=== PATIENT | female | born 1950 | race Two or more races ===

== ENCOUNTER → 2019-12-10 14:46 | Outpatient (BNVA) | payer MEDICAID, SELFPAY | PROVIDERS: Visit Provider Internal Medicine | DX: I21.4 Non-ST elevation (NSTEMI) myocardial infarction (principal); I10 Essential (primary) hypertension; E78.5 Hyperlipidemia, unspecified; E11.8 Type 2 diabetes mellitus with unspecified complications; Z86.19 Personal history of other infectious and parasitic diseases | CPT/HCPCS: 99214 ==

== ENCOUNTER 2020-03-06 14:24 | Outpatient (REF) | payer MEDICAID, SELFPAY | END 2020-03-06 14:25 | disposition home or self-care (01) | LOC: HO.LAB 14:24 | PROVIDERS: Visit Provider Internal Medicine | DX: Z20.828 Contact with and (suspected) exposure to other viral communicable diseases (principal) | CPT/HCPCS: 36415; C9803; U0003 ==

== ENCOUNTER 2020-03-16 11:09 | Outpatient (REF) | payer MEDICAID, SELFPAY | END 2020-03-16 11:10 | disposition home or self-care (01) | LOC: HO.LAB 11:09 | PROVIDERS: Visit Provider Internal Medicine | DX: Z20.822 Contact with and (suspected) exposure to COVID-19 (principal) | CPT/HCPCS: 36415; C9803; U0003 ==

== ENCOUNTER 2020-04-03 10:57 | Outpatient (REF) | payer MEDICAID, SELFPAY ==
--- NOTE | ~2020-04-03 | XR_ITS ---
EXAMINATION: XR LUMBOSACRAL SPINE WITH OBLIQUES CLINICAL INFORMATION: Lumbago right side. COMPARISON: None TECHNIQUE: AP, both oblique, and lateral views of the lumbar spine. Lateral view of the lumbosacral junction. FINDINGS: There is normal lumbar lordosis. The vertebral heights and alignment is normal. Mild loss of L4-L5 disc height with ventral and posterior spondylosis is noted. On oblique views there is no pars defect or listhesis. The facet joints are symmetrical. There is mild left facet joint arthropathy at L5-S1 disc level. Rest of the facet joints are unremarkable. No lytic or sclerotic process seen. There are multiple phleboliths overlying the sacrum. XR/XR lumbar spine 4V min IMPRESSION: Mild degenerative disc changes with spondylosis L4-L5 disc level. No listhesis or pars defect.
== END 2020-04-03 10:58 | disposition home or self-care (01) ==
LOC: HO.XRAY 10:57
PROVIDERS: PCP General Practice; Visit Provider Registered Nurse Community Health
DX: M54.41 Lumbago with sciatica, right side (principal)
CPT/HCPCS: 72110

== ENCOUNTER 2020-04-11 12:55 | Outpatient (REF) | payer MEDICAID, SELFPAY ==
--- NOTE | ~2020-04-11 | MM_ITS ---
EXAMINATION: MM SCREENING DIGITAL BREAST TOMOSYNTHESIS, BILATERAL CLINICAL INFORMATION: Screening. Asymptomatic. The lifetime risk of breast cancer based on the Tyrer-Cuzick Model is 3%. COMPARISON: Mammography: 08/06/2018, 07/10/2017, 06/06/2016 TECHNIQUE: Digital breast tomosynthesis is performed in both the craniocaudal and mediolateral oblique views along with computer-aided detection (CAD). Synthesized 2D images are generated from the tomosynthesis. Additional exaggerated left CC view and left MLO view are provided. FINDINGS: There are scattered areas of fibroglandular density (ACR BI-RADS breast composition Category b). There are no significant masses, abnormal calcifications, or other abnormalities. No significant changes from prior exams. MM/MM tomosynthesis screening BI IMPRESSION: No mammographic evidence of malignancy. ASSESSMENT: BI-RADS 1: Negative RECOMMENDATION: Routine annual mammography screening. This patient's information was entered into a reminder system with a target due date for their next mammogram.
== END 2020-04-11 12:56 | disposition home or self-care (01) ==
LOC: HO.MAMMO 12:55
PROVIDERS: PCP Emergency Medicine; Visit Provider Emergency Medicine
DX: Z12.31 Encounter for screening mammogram for malignant neoplasm of breast (principal)
CPT/HCPCS: 77063; 77067

== ENCOUNTER → 2020-04-29 13:13 | Outpatient (BNVA) | payer MEDICAID, SELFPAY | PROVIDERS: PCP General Practice; Visit Provider Nurse Practitioner ==

== ENCOUNTER 2020-05-08 08:43 | Outpatient (REF) | payer MEDICAID, SELFPAY ==
--- NOTE | ~2020-05-08 | FL_ITS ---
EXAMINATION: FL UPPER GI WITH AIR CLINICAL INFORMATION: Reflux. COMPARISON: CT scan of the abdomen and pelvis 08/21/2018. TECHNIQUE: A radiographic and fluoroscopic examination of the upper GI tract was performed utilizing air-contrast and single contrast technique with both thick and thin barium contrast solutions with the patient in the upright, prone and supine positions. Multiple spot images were obtained. FINDINGS: The swallowing mechanism appeared normal with normal esophageal motility. There is a sliding hiatal hernia with a Schatzki's ring. There is reflux present with the patient in the supine position extending into the mid esophagus. There is no mass, ulceration or stricture. STOMACH: Normal. DUODENUM: Normal. FLUOROSCOPY TIME : 0.9 minutes TOTAL: 31.263 mGy DAP: 9.552 Gycm2 IMAGES: 27 FL/FL upper GI w air IMPRESSION: Sliding hiatal hernia with a Schatzki's ring. Reflux noted extending into the mid esophagus with the patient in the supine position.
--- NOTE | ~2020-05-08 | FL_ITS ---
EXAMINATION: FL SMALL BOWEL SERIES CLINICAL INFORMATION: Gastroesophageal reflux disease without esophagitis COMPARISON: Upper GI series performed same day TECHNIQUE: Following a instructor apparel manufacture image of the abdomen, contrast was administered orally, and interval abdominal radiographs were performed to assess for contrast progression through the small bowel. Following contrast transit through the small bowel and into the colon, the patient was placed on the fluoroscopy table, and multiple spot images were obtained. FINDINGS: Railroader image of the abdomen demonstrates a normal bowel gas pattern. There is normal transit time of contrast material through the small bowel, with contrast present in the colon by 1 hour 30 minutes. Small bowel loops are of normal caliber throughout the abdomen and pelvis. The jejunal and ileal fold patterns are normal, without evidence of abnormal thickening. No fixed regions of luminal narrowing are seen to suggest stricturing. The terminal ileum demonstrates a normal appearance. FLUOROSCOPY TIME: 0.1 minute TOTAL: 2.811 mGy DAP: 0.893 Gycm2 IMAGES: 4 FLUORO + 5 FLAT = 9 TOTAL FL/FL small bowel follow through IMPRESSION: Normal small bowel series.
== END 2020-05-08 08:44 | disposition home or self-care (01) ==
LOC: HO.XRAY 08:43
PROVIDERS: PCP General Practice; Visit Provider Nurse Practitioner
DX: R10.12 Left upper quadrant pain (principal); M54.6 Pain in thoracic spine; K21.9 Gastro-esophageal reflux disease without esophagitis
CPT/HCPCS: 74240; 74246; 74248; 74250

== ENCOUNTER → 2020-05-27 12:05 | Outpatient (BNVA) | payer MEDICAID, SELFPAY | PROVIDERS: PCP General Practice; Visit Provider Nurse Practitioner ==

== ENCOUNTER → 2020-06-10 15:11 | Outpatient (BNVA) | payer MEDICAID, SELFPAY | PROVIDERS: PCP General Practice; Visit Provider Internal Medicine | DX: I21.4 Non-ST elevation (NSTEMI) myocardial infarction (principal); I10 Essential (primary) hypertension; E11.8 Type 2 diabetes mellitus with unspecified complications; E78.5 Hyperlipidemia, unspecified; M79.89 Other specified soft tissue disorders; Z86.19 Personal history of other infectious and parasitic diseases | CPT/HCPCS: 99212 ==

== ENCOUNTER → 2021-08-09 09:16 | Outpatient (BNVA) | payer MEDICAID, SELFPAY | PROVIDERS: PCP General Practice; Visit Provider Nurse Practitioner Family | DX: M54.16 Radiculopathy, lumbar region (principal); M96.1 Postlaminectomy syndrome, not elsewhere classified; M43.06 Spondylolysis, lumbar region; M46.1 Sacroiliitis, not elsewhere classified; M53.3 Sacrococcygeal disorders, not elsewhere classified | CPT/HCPCS: 99202 ==

== ENCOUNTER 2021-08-17 13:37 | Outpatient (REF) | payer MEDICAID, SELFPAY ==
--- NOTE | ~2021-08-17 | MR_ITS ---
EXAMINATION: MR LUMBAR SPINE WITHOUT CONTRAST CLINICAL INFORMATION: Lumbar radiculopathy. Right lower extremity pain, numbness, and weakness. COMPARISON: Lumbar spine radiographs 04/03/2020. TECHNIQUE: MRI of the lumbar spine was obtained using routine sequences without contrast. FINDINGS: Alignment is normal. Vertebral body heights are preserved. There are mixed type II and type III degenerative endplate changes at L4-L5. There is slight loss of intervertebral disc height and T2 signal intensity at L4-L5. Disc desiccation visualized at multiple additional levels. The tip of the conus medullaris is located at L2. No mass effect on the conus. Visualized distal cord signal intensity is normal. At L1-L2 the annular contour is normal. No canal or neuroforaminal compromise. At L2-L3 the annular contour is normal. No canal or neuroforaminal compromise. At L3-L4 there is a slightly bulging disc. Bilateral facet degenerative change. Mild canal stenosis. No mass effect on the traversing or foraminal nerve roots. At L4-L5 there are chronic postlaminectomy changes. There is a slightly bulging disc. No canal stenosis. There is subtle displacement of the right traversing L5 nerve roots. Moderate to severe compression of the right L4 foraminal nerve root and at least mild mass effect on the left L4 foraminal nerve root. At L5-S1 there is a slightly bulging disc. Bilateral facet degenerative change. There is epidural lipomatosis causing near complete effacement of the subarachnoid space. Otherwise no mass effect on the traversing or foraminal nerve roots. Limited visualization of the retroperitoneal anatomy reveals no abnormal finding. Psoas and paraspinal muscle groups are symmetric. MR/MR lumbar spine wo con IMPRESSION: There are chronic postlaminectomy changes at L4-L5. A bulging disc in conjunction with facet degenerative change at L3-L4 causes mild canal stenosis. There is also epidural lipomatosis at the level of L5-S1 causing near complete effacement of the subarachnoid space at this level. A bulging disc in conjunction with facet degenerative change at L4-L5 causes moderate to severe compression of the right L4 foraminal nerve root and at least mild mass effect on the left L4 foraminal nerve root. Otherwise no substantial neuroforaminal compromise within the lumbar spine.
== END 2021-08-17 13:38 | disposition home or self-care (01) ==
LOC: HO.MRI 13:37
PROVIDERS: Visit Provider Nurse Practitioner Family
DX: M54.16 Radiculopathy, lumbar region (principal)
CPT/HCPCS: 72148

== ENCOUNTER → 2021-08-27 08:19 | Outpatient (BNVA) | payer MEDICAID, SELFPAY | PROVIDERS: PCP General Practice; Visit Provider Nurse Practitioner Family | DX: M96.1 Postlaminectomy syndrome, not elsewhere classified (principal); M53.3 Sacrococcygeal disorders, not elsewhere classified; M43.06 Spondylolysis, lumbar region; M54.16 Radiculopathy, lumbar region; D17.79 Benign lipomatous neoplasm of other sites; Z87.19 Personal history of other diseases of the digestive system | CPT/HCPCS: 99212 ==

== ENCOUNTER 2021-11-05 11:14 | Outpatient (REF) | payer MEDICAID, SELFPAY ==
--- NOTE | ~2021-11-05 | US_ITS ---
EXAMINATION: US ABDOMEN COMPLETE CLINICAL INFORMATION: Right upper quadrant pain, postprandial large volume emesis. Rule out gallstones. COMPARISON: CT abdomen and pelvis 08/21/2018. Ultrasound abdomen complete 08/16/2016. TECHNIQUE: Real-time imaging of the abdominal viscera. FINDINGS: PANCREAS: Normal. ABDOMINAL AORTA: The proximal, mid, and distal segments are normal in caliber. INFERIOR VENA CAVA: Visualized portions are normal. LIVER: Liver has normal size, contour and echotexture. No focal liver lesion or intrahepatic bile duct dilatation. GALLBLADDER: The gallbladder has a few small calculi. No wall thickening or pericholecystic fluid. COMMON BILE DUCT: Normal in caliber measuring 0.7 cm in diameter. RIGHT KIDNEY: Normal. No hydronephrosis. No renal calculi or focal parenchymal lesions. The kidney measures 8.9 cm in maximum dimension. LEFT KIDNEY: Normal. No hydronephrosis. No renal calculi or focal parenchymal lesions. The kidney measures 9.2 cm in maximum dimension. SPLEEN: Normal. The spleen measures 8.0 cm in maximum dimension. FREE FLUID: None. US/US abdomen complete IMPRESSION: Cholelithiasis without evidence of cholecystitis or biliary tract obstruction.
== END 2021-11-05 11:15 | disposition home or self-care (01) ==
LOC: HO.US 11:14
PROVIDERS: PCP General Practice; Visit Provider General Practice
DX: R10.11 Right upper quadrant pain (principal); R11.10 Vomiting, unspecified
CPT/HCPCS: 76700

== ENCOUNTER 2021-11-08 15:47 | Outpatient (REF) | payer MEDICAID, SELFPAY ==
--- NOTE | ~2021-11-08 | MM_ITS ---
EXAMINATION: MM SCREENING DIGITAL BREAST TOMOSYNTHESIS, BILATERAL CLINICAL INFORMATION: Screening. Asymptomatic. The lifetime risk of breast cancer based on the Tyrer-Cuzick Model is 3%. COMPARISON: Mammography: 04/11/2020, 08/06/2018, 07/10/2017 TECHNIQUE: Digital breast tomosynthesis is performed in both the craniocaudal and mediolateral oblique views along with computer-aided detection (CAD). Synthesized 2D images are generated from the tomosynthesis. FINDINGS: There are scattered areas of fibroglandular density (ACR BI-RADS breast composition Category b). Parenchymal pattern is similar to prior exams. There is no developing density or interval mass or abnormal calcifications. Skin folds seen overlying the upper axilla. No skin thickening. No significant changes. MM/MM tomosynthesis screening BI IMPRESSION: No mammographic evidence of malignancy. ASSESSMENT: BI-RADS 2: Benign RECOMMENDATION: Routine annual mammography screening. This patient's information was entered into a reminder system with a target due date for their next mammogram.
== END 2021-11-08 15:48 | disposition home or self-care (01) ==
LOC: HO.MAMMO 15:47
PROVIDERS: PCP General Practice; Visit Provider General Practice
DX: Z12.31 Encounter for screening mammogram for malignant neoplasm of breast (principal)
CPT/HCPCS: 77063; 77067

== ENCOUNTER 2021-11-29 14:26 | Outpatient (REF) | payer MEDICAID, SELFPAY ==
[2021-11-29 16:08] LABS: Blood Urea Nitrogen 17 mg/dL (9-16); Estimated Glomerular Filt Rate > 60
== END 2021-11-29 14:27 | disposition home or self-care (01) ==
LOC: HO.LAB 14:26
PROVIDERS: PCP General Practice; Referring Provider General Practice; Visit Provider Surgery
DX: R10.9 Unspecified abdominal pain (principal); G89.29 Other chronic pain; K80.20 Calculus of gallbladder without cholecystitis without obstruction
CPT/HCPCS: 36415; 82565; 84520; 99202

== ENCOUNTER → 2021-12-07 15:28 | Outpatient (BNVA) | payer MEDICAID, SELFPAY | PROVIDERS: PCP General Practice; Visit Provider Surgery Vascular Surgery | DX: I73.9 Peripheral vascular disease, unspecified (principal) | CPT/HCPCS: 99202 ==

== ENCOUNTER 2021-12-08 08:50 | Outpatient (REF) | payer MEDICAID, SELFPAY ==
--- NOTE | ~2021-12-08 | CT_ITS ---
EXAMINATION: CT ABDOMEN AND PELVIS WITH CONTRAST CLINICAL INFORMATION: Abdominal pain COMPARISON: None TECHNIQUE: Multidetector volumetric images were obtained from the superior aspect of the liver through the pubic symphysis following administration 85 mL of Omnipaque 350 intravenous contrast. Sagittal and coronal reformatted images were obtained on the technologist's workstation. Oral contrast: No This CT examination was performed using dose optimization techniques as appropriate, variously including the following: *Automated exposure control *Adjustment of mA and/or kV according to patient size (this includes techniques or standardized protocols for targeted exams where dose is matched to indication/reason for exam; i.e. extremities or head) *Use of iterative reconstruction technique DLP: 518 mGy-cm FINDINGS: LUNG BASES: The lung bases are clear. Heart size is normal. LIVER, GALLBLADDER, AND BILIARY TREE: The liver is normal in size, shape, and attenuation. No focal hepatic lesion or biliary ductal dilatation is present. The gallbladder is unremarkable with no evidence of radiopaque gallstones, gallbladder wall thickening, or obvious pericholecystic inflammatory changes. PANCREAS: Unremarkable. SPLEEN: Unremarkable. ADRENAL GLANDS: Unremarkable. KIDNEYS AND URETERS: The kidneys are normal in size, shape, and attenuation. No hydronephrosis, hydroureter, or calculi seen. No perinephric stranding. There is a 1 cm partially exophytic cyst, upper pole left kidney. BLADDER: Unremarkable. GASTROINTESTINAL TRACT: There is scattered stool and gas seen throughout the colon without significant distention. The small bowel loops are normal caliber. The appendix is normal caliber. No inflammatory process seen in the abdomen/pelvis. ABDOMINAL WALL: No significant hernia is appreciated. LYMPH NODES: Normal. VASCULAR: Unremarkable. PELVIC VISCERA: The uterus is anteverted and appears unremarkable. There is no adnexal mass or free fluid. OSSEOUS STRUCTURES: Mild degenerative disc changes L4-L5 disc level with ventral and posterior spondylosis. No aggressive lytic or sclerotic process seen. CT/CT abdomen pelvis w IV con IMPRESSION: 1. No acute intra-abdominal process seen. 2. Moderate constipation without obstruction. Normal appendix. Fleischner guidelines were followed.
[2021-12-08] MEDS: iohexoL 350 MG/ML 100 ML INFUS..BTL IV (09:34)
== END 2021-12-08 08:51 | disposition home or self-care (01) ==
LOC: HO.CT 08:50
PROVIDERS: PCP General Practice; Visit Provider Surgery
DX: R10.9 Unspecified abdominal pain (principal); G89.29 Other chronic pain
CPT/HCPCS: 74177; Q9967

== ENCOUNTER → 2021-12-20 10:41 | Outpatient (BNVA) | payer MEDICAID, SELFPAY | PROVIDERS: PCP General Practice; Referring Provider General Practice; Visit Provider Surgery | DX: R10.9 Unspecified abdominal pain (principal); G89.29 Other chronic pain | CPT/HCPCS: 99212 ==

== ENCOUNTER → 2022-01-06 09:51 | Outpatient (BNVA) | payer MEDICAID, SELFPAY | PROVIDERS: PCP General Practice; Visit Provider Nurse Practitioner | DX: K21.9 Gastro-esophageal reflux disease without esophagitis (principal); R10.12 Left upper quadrant pain; M54.6 Pain in thoracic spine; A04.8 Other specified bacterial intestinal infections | CPT/HCPCS: 99212 ==

== ENCOUNTER 2022-01-12 12:18 | Outpatient (REF) | payer MEDICAID, SELFPAY ==
--- NOTE | ~2022-01-12 | US_ITS ---
EXAMINATION: NONINVASIVE ASSESSMENT OF THE ARTERIES OF BOTH LOWER EXTREMITIES INCLUDING PVR EXAM AND BILATERAL LOWER EXTREMITY DUPLEX CLINICAL INFORMATION: Peripheral vascular disease, unspecified COMPARISON: None TECHNIQUE: Ankle pulse volume recordings, ankle pressure measurements and ankle brachial indices were obtained of the lower extremity arterial system bilaterally in addition to duplex Doppler techniques with wave form analysis and measurement of velocities in the common femoral, profunda femoral, superficial femoral, popliteal, tibial and peroneal arteries. The study was performed only at rest. FINDINGS: RIGHT LEG 1. Right Ankle-Brachial Index: 1.01 (higher of the DP/PT) >0.97-1.25 = normal - no significant arterial disease 0.75-0.96 = mild peripheral arterial disease 0.5-0.74 = moderate peripheral arterial disease <0.50 = severe peripheral arterial disease <0.30 = critical arterial disease 2. Segmental Pressures (mmHg): Brachial: 107 Ankle: PT 110, DP 101 3. PVR Waveforms: Ankle: Normal 4. Direct Duplex: Common femoral artery: 183 cm/s, Multiphasic Profunda femoris artery: 108 cm/s, monophasic Superficial femoral artery (proximal): 124 cm/s, Multiphasic Superficial femoral artery (mid): 113 cm/s, Multiphasic Superficial femoral artery (distal): 87.9 cm/s, Multiphasic Proximal Popliteal artery: 58.9 cm/s, Multiphasic Distal popliteal artery: 57.8 cm/s, Multiphasic Mid posterior tibial artery: 93.2 cm/s, Multiphasic Peroneal artery: 72.7 cm/s, Multiphasic LEFT LE. Left Ankle-Brachial Index: 0.98 (higher of the DP/PT) >0.97-1.25 = normal - no significant arterial disease 0.75-0.96 = mild peripheral arterial disease 0.5-0.74 = moderate peripheral arterial disease <0.50 = severe peripheral arterial disease <0.30 = critical arterial disease 2. Segmental Pressures: Brachial: 109 Ankle: PT 107, DP 88 3. PVR Waveforms: Ankle: Normal 4. Direct Duplex: Common femoral artery: 169 cm/s, Multiphasic Profunda femoris artery: 152 cm/s, monophasic Superficial femoral artery (proximal): 122 cm/s, Multiphasic Superficial femoral artery (mid): 116 cm/s, Multiphasic Superficial femoral artery (distal): 117 cm/s, Multiphasic Proximal Popliteal artery: 60.5 cm/s, Multiphasic Distal popliteal artery: 60.5 cm/s, Multiphasic Mid posterior tibial artery: 97.3 cm/s, Multiphasic Peroneal artery: 64 cm/s, Multiphasic US/US arterial duplex LE BI IMPRESSION: On the right the KAYLIE 1.01. PVR waveform unremarkable. There is multiphasic flow throughout the lower extremity. On the left KAYLIE is 0.98. PVR waveform is unremarkable. There is multiphasic flow throughout the lower extremity.
== END 2022-01-12 12:19 | disposition home or self-care (01) ==
LOC: HO.US 12:18
PROVIDERS: Visit Provider Surgery Vascular Surgery
DX: I73.9 Peripheral vascular disease, unspecified (principal)
CPT/HCPCS: 93923; 93925

== ENCOUNTER 2022-01-19 10:44 | Outpatient (REF) | payer MEDICAID, SELFPAY | END 2022-01-19 10:45 | disposition home or self-care (01) | LOC: HO.LNP 10:44 | PROVIDERS: Visit Provider Nurse Practitioner | DX: A04.8 Other specified bacterial intestinal infections (principal) | CPT/HCPCS: 87338 ==

== ENCOUNTER → 2022-02-01 09:48 | Outpatient (BNVA) | payer MEDICAID, SELFPAY | PROVIDERS: PCP General Practice; Visit Provider Nurse Practitioner | DX: K21.9 Gastro-esophageal reflux disease without esophagitis (principal); K80.20 Calculus of gallbladder without cholecystitis without obstruction; R10.9 Unspecified abdominal pain; Z86.19 Personal history of other infectious and parasitic diseases; Z79.899 Other long term (current) drug therapy | CPT/HCPCS: 99212 ==

== ENCOUNTER 2022-06-27 12:50 | Outpatient (REF) | payer MEDICAID, SELFPAY ==
--- NOTE | ~2022-06-27 | XR_ITS ---
EXAMINATION: XR MANDIBLE CLINICAL INFORMATION: Right jaw pain. COMPARISON: None available. TECHNIQUE: 4 views of the mandible were obtained. FINDINGS: There are no fractures or dislocations. No bone, joint or soft tissue abnormality is demonstrated. XR/XR mandible <4V IMPRESSION: Unremarkable mandible examination.
== END 2022-06-27 12:51 | disposition home or self-care (01) ==
LOC: HO.XRAY 12:50
PROVIDERS: PCP General Practice; Visit Provider General Practice
DX: R68.84 Jaw pain (principal)
CPT/HCPCS: 70100

== ENCOUNTER → 2022-08-17 08:43 | Outpatient (BNVA) | payer MEDICAID, SELFPAY | PROVIDERS: PCP General Practice; Visit Provider Nurse Practitioner | DX: K21.9 Gastro-esophageal reflux disease without esophagitis (principal); K80.20 Calculus of gallbladder without cholecystitis without obstruction; R10.9 Unspecified abdominal pain; A04.8 Other specified bacterial intestinal infections | CPT/HCPCS: 99212 ==

== ENCOUNTER 2022-11-15 07:56 | Outpatient (REF) | payer OTHER, SELFPAY | END 2022-11-15 07:57 | disposition home or self-care (01) | LOC: HO.MAMMO 07:56 | PROVIDERS: Visit Provider General Practice | DX: Z12.31 Encounter for screening mammogram for malignant neoplasm of breast (principal) | CPT/HCPCS: 77063; 77067 ==

== ENCOUNTER → 2022-11-15 08:00 | Outpatient (BNV) | payer OTHER, SELFPAY | PROVIDERS: Visit Provider Radiology Diagnostic Radiology | DX: Z12.31 Encounter for screening mammogram for malignant neoplasm of breast (principal) | CPT/HCPCS: 77063; 77067 ==

== ENCOUNTER 2023-08-29 11:40 | Outpatient (REF) | payer SELFPAY ==
[2023-08-29 13:56] LABS: Alanine Aminotransferase 34 U/L (0-31); Alkaline Phosphatase 70 U/L (39-117); Anion Gap 12 (12-20); Aspartate Amino Transferase 32 U/L (5-31); Bilirubin Total 0.4 mg/dL (0.0-1.0); Blood Urea Nitrogen 17 mg/dL (9-16); Carbon Dioxide 31 mmol/L (22-29); Chloride 103 mmol/L (96-108); Cholesterol 106 mg/dL (<200); Estimated Glomerular Filt Rate > 60; Glucose Random 140 mg/dL (60-115); HDL Cholesterol 33 mg/dL (>40); LDL Cholesterol Calculated 61 mg/dL (<100); Potassium 3.9 mmol/L (3.3-5.1); Sodium 142 mmol/L (135-145); Total Protein 7.4 g/dL (6.5-8.0); Triglycerides 61 mg/dL (<150)
[2023-08-29 14:09] LABS: Creatinine Urine 69.57 mg/dL; Microalbumin Urine < 5.0 mg/L
== END 2023-08-29 11:41 | disposition home or self-care (01) ==
LOC: HO.HHCL 11:40
PROVIDERS: Visit Provider General Practice
DX: E11.9 Type 2 diabetes mellitus without complications (principal)
CPT/HCPCS: 36415; 80053; 80061; 82043; 82570

== ENCOUNTER 2024-02-14 08:44 | Outpatient (REF) | payer SELFPAY ==
[2024-02-14 11:57] LABS: MANUAL DIFF FLAG NO
[2024-02-14 11:58] LABS: Basophils Absolute Auto 0.1 X10*3/uL (0.0-0.2); Basophils Percent Auto 1.3 % (0-2); Eosinophils Absolute Auto 0.1 X10*3/uL (0.0-0.4); Eosinophils Percent Auto 3.3 % (0-4); Hematocrit 38.8 % (37.0-47.0); Hemoglobin 12.7 g/dl (12.0-16.0); Lymphocytes Absolute Auto 1.5 X10*3/uL (1.2-4.9); Lymphocytes Percent Auto 37.6 % (20-40); Mean Corpuscular HGB Conc 32.7 g/dl (31.0-35.0); Mean Corpuscular Hemoglobin 30.5 pg (27.0-33.0); Mean Platelet Volume 11.5 fL (9.4-12.3); Monocytes Absolute Auto 0.5 X10*3/uL (0.1-1.2); Monocytes Percent Auto 12.3 % (2-11); Neutrophils Absolute Auto 1.8 x10*3/uL (2.0-8.3); Neutrophils Percent Auto 45.5 % (45-73); Platelet Count 230 X10*3/uL (160-400); Red Blood Count 4.17 X10*6/uL (4.20-5.50); Red Cell Distribution Width 12.6 % (11.0-16.0)
[2024-02-14 12:08] LABS: Anion Gap 12 (12-20); Blood Urea Nitrogen 19 mg/dL (9-16); Calcium 9.3 mg/dL (8.4-10.2); Carbon Dioxide 28 mmol/L (22-29); Chloride 102 mmol/L (96-108); Estimated Glomerular Filt Rate > 60; Glucose Random 163 mg/dL (60-115); Potassium 3.9 mmol/L (3.3-5.1); Sodium 138 mmol/L (135-145)
[2024-02-14 12:13] LABS: Partial Thromboplastin Time 29.5 SEC (26.0-36.8)
== END 2024-02-14 08:45 | disposition home or self-care (01) ==
LOC: HO.HHCL 08:44
DX: Z01.818 Encounter for other preprocedural examination (principal)
CPT/HCPCS: 36415; 80048; 85025; 85610; 85730

== ENCOUNTER 2024-08-16 12:23 | Outpatient (REF) | payer MEDICAID, SELFPAY ==
--- NOTE | ~2024-08-16 | XR_ITS ---
EXAMINATION: XR SHOULDER, RIGHT CLINICAL INFORMATION: Acute right shoulder pain COMPARISON: None available. TECHNIQUE: AP external rotation, Grashey, scapular Yviews of the right shoulder. FINDINGS: The AC joint is intact with minimal marginal osteophyte formation. Glenohumeral joint is intact with subtle marginal osteophytes involving glenoid and humeral head. No other abnormalities are present. XR/XR shoulder RT min 2V IMPRESSION: Minimal degenerative changes at the glenoid humeral and AC joints. Electronically signed by: Romel Hyde MD 08/16/2024 01:34 PM EDT
--- OUTSIDE RECORDS SUMMARY | 2024-08-16 12:26 | XMS_ITS | Encounter Summary ---
Author Organization [employer] Address [address] [place] [address] [address] [place] [address] Care Team Providers Care Garage Door Hanger Name Role Phone Tati Hudson MD Primary Care Provider Encounter Details Date Type Department Care Team (Latest Contact Info) Description 08/16/2024 Travel Social History Tobacco Use Types Packs/Day Years Used Date Smoking Tobacco: Former Cigarettes Passive Smoke Exposure: Past Smokeless Tobacco: Never Alcohol Use Standard Drinks/Week Comments Never 0 (1 standard drink = 0.6 oz pur e alcohol) Alcohol Answer Date Recorded Frequency of Alcohol Consumption Not on file 08/29/2023 Average Number of Drinks Not on file 024 Frequency of Binge Drinking Not on file 03/2023 Score 0 08/29/2023 Depression Answer Date Recorded Patient Health Questionnaire-9 Score 6 08/29/2023 Patient Health Questionnaire-9 Score 6 08/29/2023 Last PHQ-9: Questionnaire Data Not on file 0 08/29/2023 Housing Stability Answer Date Recorded What is your housing situation today? I have lisa matthews 08/29/[address] you li ve. Do you have problems with any of the following? None of the above 08/29/2023 Food Insecurity Answer Date Recorded Within the past 12 months, y ou worried that your food would run out before you got money to buy more: Never True 08/29/2023 Within the past 12 months,th e food you bought just didn't last and you didn't have enough money to get more: Never True 03/2023 Transportation Answer Date Recorded In the past 12 months, has l ack of transportation kept you from medical appts, meetings, work or from getting things needed for daily living? No 08/29/2023 Utilities Answer Date Recorded In the past 12 months, has t he electric, gas, oil or water company threatened to shut off services in your home? No 08/29/2023 Depression Answer Date Recorded Patient Health Questionnaire-2 Score 4 08/29/2023 Internet Access Answer Date Recorded Internet Access Q1 Yes 10/30/2023 Internet Access Q2 Not on file 10/30/2023 Comments Unknown Sex and Gender Information Value Date Recorded Sex Assigned at Female 12/27/2021 10:28 AM EDT Legal Sex Female 10:28 AM EDT Gender Identity Female 12/27/2021 10:28 AM EDT Sexual Orientation Straight 12/27/2021 10 :28 AM EDT documented as of this encounter Plan of Treatment Not on file documented as of this encounter Visit Diagnoses Not on filedocumented in this encounter Additional Health Concerns Assessment Noted Time PHQ-9 Depression Total Score: 6 08/29/19 24 11:02 AM EDT documented as of this encounter Care Teams Garage Door Hanger Relationship Specialty Start Date End Date Tati Hudson MD [address] [place] [id number] PCP - General Family Medicine 02/07/20 documented as of this encounter
[2024-08-16 14:28] LABS: C Reactive Protein < 0.10 mg/dL (< or = 0.50)
[2024-08-16 14:34] LABS: Erythrocyte Sedimentation Rate 11 MM/HR (0-20)
[2024-08-16 14:54] LABS: Rheumatoid Factor < 13.0 IU/mL (<15.0)
[2024-08-20 06:13] LABS: Lyme Abs Screen <0.90 index
[2024-08-20 14:17] LABS: Anti Nuclear Antibody Screen NEGATIVE (NEGATIVE)
== END 2024-08-16 12:24 | disposition home or self-care (01) ==
LOC: HO.HHCL 12:23
PROVIDERS: PCP General Practice; Visit Provider General Practice
DX: M25.511 Pain in right shoulder (principal)
CPT/HCPCS: 36415; 73030; 85652; 86038; 86140; 86431; 86617; 86618

== ENCOUNTER → 2024-08-16 12:38 | Outpatient (BNV) | payer MEDICAID, SELFPAY | PROVIDERS: PCP General Practice; Visit Provider Radiology Diagnostic Radiology | DX: M25.511 Pain in right shoulder (principal) | CPT/HCPCS: 73030 ==